=== PATIENT | male | born 1985 | race Caucasian/White ===

== ENCOUNTER 2022-08-29 20:05 | Emergency (ER) | payer MEDICAID ==
[~2022-08-29] VITALS: Ht 165.1 cm; Wt 51.2 kg
[2022-08-29 21:12] VITALS: BP 118/77
[2022-08-29] MEDS ORDERED: HYDR-3965 PO (22:17)
[2022-08-29] MEDS ORDERED: ONDA4TAB12 PO (22:17)
[2022-08-29] MEDS: HYDROcodone/acetaminophen 10/325mg tab PO ONE ×2 (22:34→22:48)
--- NOTE | 2022-08-29 22:35 | NUR ---
pt spit out medication, ordered again
[2022-08-29] MEDS: ondansetron 4mg rapidly disintigrating tab PO ONE (22:48)
== END 2022-08-29 22:50 | disposition home or self-care (01) ==
LOC: ER 20:06
DX: I82.4Z2 Acute embolism and thrombosis of unspecified deep veins of left distal lower extremity (principal); Z79.899 Other long term (current) drug therapy
CPT/HCPCS: 99283

== ENCOUNTER 2023-01-08 07:07 | Emergency (ER) | payer MEDICARE, MEDICAID ==
[~2023-01-08] VITALS: Ht 162.6 cm; Wt 54.5 kg
[~2023-01-08 07:07] MED LIST: ONDA4TAB12 PO
[2023-01-08 07:56] VITALS: BP 110/65; PULSE 88; RESP 18; TEMP 98.2; O2SAT 96
== END 2023-01-08 10:38 | disposition home or self-care (01) ==
LOC: ER 07:07
DX: S83.005A Unspecified dislocation of left patella, initial encounter (principal); Z79.899 Other long term (current) drug therapy; X58.XXXA Exposure to other specified factors, initial encounter; Y93.89 Activity, other specified; Y92.89 Other specified places as the place of occurrence of the external cause; Y99.8 Other external cause status
CPT/HCPCS: 73502; 73564; 93971; 99284; A6449

== ENCOUNTER 2025-03-28 09:22 | Emergency (ER) | payer MEDICARE, MEDICAID ==
[~2025-03-28] VITALS: Ht 162.6 cm; Wt 77.0 kg
[~2025-03-28 09:22] MED LIST changes: +ONDA-243 PO; -ONDA4TAB12 PO
[2025-03-28 09:26] VITALS: TEMP 100.6
--- NOTE | 2025-03-28 09:27 | Physician Documentation ---
History of Present Illness ~ Stated Complaint: FALL Time Seen by MD: 09:25 Primary Medical Doctor: DR ZEE [facility] This is a 39-year-old male who resides in a care facility. History of Down syndrome, nonverbal with developmental delay. His caregiver, who accompanies him, reports that yesterday he had an episode of diarrhea, causing him to slip in the diarrhea and fall onto his bottom. He went to bed last night and the caregiver went to wake him up this morning as usual, but the patient was refusing to bear weight on the right knee. He keeps the right leg in a flexed position, in the right knee does appear to be swollen and is tender to the touch. Patella appears laterally dislocated. No head strike to the knowledge of the caregiver. Patient's behavior is at his baseline other than the unwillingness to ambulate. Tetanus within 5 Years?: Yes Medication Reconciliation Allergies: Coded Allergies: No Known Allergies (Unverified , 03/28/25) Scheduled ONDANSETRON ODT 4mg tablet (Ondansetron Odt), 1 TABLET PO Q6H Past Medical History Past Medical History: CVA/TIA/Stroke, Deep Vein Thrombosis Alcohol Use: None Drug Use: none Lives In: Assisted Care Occupation: disabled Review of Systems ROS As stated above in the HPI, otherwise all systems are reviewed and negative. Physical Exam Physical Exam General: Alert, no apparent distress. HEENT: PERRL, EOMI, no injection, moist mucous membranes. Neck: Full range of motion. Respiratory: Lungs clear, no respiratory distress. Chest: No accessory muscle use. Cardiovascular: Regular rate and rhythm, no murmurs. Gastrointestinal: Soft, nontender, nondistended. Bowels sounds present. Extremities: Normal range of motion, no deformity. Neurologic: Oriented x4. Psychiatric: Normal mood and affect. Skin: Normal color, warm and dry. No edema, no ecchymosis. Progress Progress Note 1040: Patient is still yelling and refusing to straighten right knee more than 30 minutes after Dilaudid 0.5 mg IM. Discussed with nurse, we will repeat dose. 1120: More relaxed after second dose of dilaudid. Able to straighten knee, maya la now appears appropriately aligned. XR pending. Results/Orders Results/Orders Orders - JACQUELINE GONCALVES NP Urinalysis, Cult If Indicated (03/28/25 10:16) Ortho Orders (03/28/25 ) Observation Status Start (03/28/25 10:46) Knee Limited (Ap/Lat) (03/28/25 ) Knee Limited (Ap/Lat) (03/28/25 09:52) Completed Orders - JACQUELINE GONCALVES NP Cbc/Diff (03/28/25 09:52) BMP (03/28/25 09:52) Hydromorphone 0.5 Mg/0.5 Ml/Pf (Dilaudid (03/28/25 10:05) Hydromorphone 0.5 Mg/0.5 Ml/Pf (Dilaudid (03/28/25 10:45) Potassium Cl Sr Tablet (K-Dur Tablet) (03/28/25 10:50) Potassium Cl 10meq Er Tablet (Klor-Con 1 (03/28/25 10:55) Knee Limited (Ap/Lat) (03/28/25 ) Knee Limited (Ap/Lat) (03/28/25 09:52) Medications Received in ER Medications (Trade) Dose Ordered Sig/Evert Route PRN Reason Start Time Stop Time Status Last Admin Dose Admin (Dilaudid inj.) 0.5 mg ONCE ONCE IM 03/28/25 10:05 03/28/25 10:06 DC 03/28/25 10:10 0.5 MG (Dilaudid inj.) 0.5 mg ONCE ONCE IM 03/28/25 10:45 03/28/25 10:46 DC 03/28/25 10:50 0.5 MG (K-DUR tablet) 10 meq ONCE ONCE PO 03/28/25 10:50 03/28/25 10:51 DC 03/28/25 10:50 10 MEQ Vital Signs 03/28/25 03/28/25 03/28/25 03/28/25 09:26 10:10 10:18 10:20 Temp 100.6 Pulse 109 104 Resp 18 16 16 18 B/P (MAP) 134/84 112/73 (86) Pulse Ox 98 98 O2 Flow Rate 0 0 03/28/25 03/28/25 03/28/25 10:50 11:10 11:18 Pulse 98 Resp 18 16 16 B/P (MAP) 116/72 (87) Pulse Ox 98 O2 Flow Rate 0 Laboratory Tests Test 03/28/25 10:16 White Blood Count 8.5 Red Blood Count 4.91 Hemoglobin 16.4 Hematocrit 46.9 Mean Corpuscular Volume 95.5 Mean Corpuscular Hemoglobin 33.5 H Mean Corpuscular Hemoglobin Concent 35.1 Red Cell Distribution Width 14.1 Platelet Count 143 Mean Platelet Volume 7.6 Neutrophils (%) (Auto) 84.1 H Lymphocytes (%) (Auto) 8.8 L Monocytes (%) (Auto) 6.8 Eosinophils (%) (Auto) 0 Basophils (%) (Auto) 0.3 Neutrophils # (Auto) 7.1 Lymphocytes # (Auto) 0.7 L Monocytes # (Auto) 0.6 Eosinophils # (Auto) 0.0 Basophils # (Auto) 0.0 CBC Comment Sodium Level 137 Potassium Level 3.3 L Chloride Level 106 Carbon Dioxide Level 22.7 L Anion Gap 8 Blood Urea Nitrogen 18 Creatinine 1.09 Estimated GFR/1.73 m2 76 BUN/Creatinine Ratio 16.5 Glucose Level 126 H Calcium Level 7.1 L Albumin 3.2 L Chemistry Comments EKG/XRAY/CT/US/VASC/MRI Bone/Soft Tissue X-Ray (Spine) : Additional Comment [place] [id number] DIAGNOSTIC RADIOLOGY Patient: VETO CALDWELL Medical Record: [id number] [facility] : 1985, Age: 39 Sex: Male Location: ER Patient Status: REG ER Service Date/Time: 03/28/25951 Ordering Physician: JACQUELINE GONCALVES NP Exam: KNEE LIMITED (AP /LAT) CLINICAL INFORMATION: Right knee pain. TECHNIQUE: 2 views of the right knee were obtained. COMPARISON: DI KNEE LIMITED (AP/LAT) on DOS: 03/28/25, DI HIP UNILATERAL 2 VIEWS on DOS: 01/08/23, DI KNEE, COMP 4 VW MIN on DOS: 01/08/23 FINDINGS: Mild cortical deformity at the lateral tibial plateau, possible fracture. There is cortical deformity at the proximal fibular neck on the AP view, possible nondisplaced fracture. Mild joint space narrowing of the medial and lateral compartments. No focal soft tissue swelling. Small to moderate joint effusion. IMPRESSION: 1. Cortical deformity at the lateral tibial plateau, possible fracture. Correlate with clinical findings. CT could be obtained to further evaluate if clinically indicated. 2. Mild cortical deformity of the proximal fibular neck on the AP view, not definitely confirmed on additional views, possible nondisplaced fracture. This could also be further evaluated on CT if clinically indicated. Electronically Signed by:MANUEL RASHID DO Date & Time: 03/28/25 115 Dictated by: MANUEL RASHID DO Dictation date and time: 03/28/25 1156 Primary Care Provider: NO PRIMARY CARE PROVIDER cc: JACQUELINE GONCALVES PHARMACY CLINICAL COORDINATOR ~ Medical Decision Making Additional information obtaine: old records Findings Patient was last seen here on 01/08/2023 for a patellar dislocation. History is notable for developmental delay, nonverbal status, previous stroke, DVT. Differential Dx:Considerations: Include: Closed head injury, Cardiac injury, Fracture(s), Intraabdominal injury, Pneumothorax, Cerebral contusion, Pulmonary contusion, Spine injury, Tracheal injury, Urological injury, Vascular injury, Abrasion(s), Contusion(s), Foreign body(s), Hematoma(s), Laceration(s), Encephalopathy Additional Comment Most Likely Diagnoses Recurrent patellar dislocation or subluxation: Given the history of prior patellar dislocation and recent trauma (fall onto the bottom), acute patellar instability is highly likely. Down syndrome is associated with ligamentous laxity, further predisposing to recurrence. Swelling and refusal to bear weight are consistent with acute dislocation or subluxation.[1] Meniscal tear or ligamentous injury: Trauma with inability to bear weight and joint swelling raises concern for meniscal or ligamentous injury (ACL/MCL), which can present with effusion and pain after a fall.[2-3] Soft-tissue contusion or intra-articular hemarthrosis: Direct trauma may cause bleeding into the joint (hemarthrosis) or significant contusion, especially in patients with underlying joint instability.[4] Prepatellar bursitis: Falling directly onto the knee can cause acute inflammation of the prepatellar bursa, leading to swelling and pain.[5] Reactive arthritis: The recent diarrheal illness raises the possibility of post- enteric reactive arthritis, which typically presents as an asymmetric monoarthritis of the lower extremity within days to weeks after infection.[6] Most Important Not to Miss Diagnoses Septic arthritis: Acute monoarticular swelling, pain, and refusal to bear weight could indicate septic arthritis, especially in a nonverbal patient who cannot report systemic symptoms. Septic arthritis requires urgent arthrocentesis for diagnosis and prompt antibiotics.[7] Occult patellar or tibial plateau fracture: A fall with inability to bear weight and swelling may indicate an occult fracture, which can be missed on initial radiographs. Tibial plateau fractures are often overlooked and require careful imaging, especially if standard X-rays are inconclusive.[8] Deep vein thrombosis (DVT): Acute swelling and pain in the lower extremity, especially in a non-ambulatory patient, should prompt consideration of DVT. Compression ultrasonography is the first-line test.[9] Departure Time of Disposition: 12:16 Impression: Primary Impression: Fall Qualified Codes: W19.XXXA - Unspecified fall, initial encounter Additional Impressions: Patellar dislocation Qualified Codes: S83.004A - Unspecified dislocation of right patella, initial encounter Tibial plateau fracture, right Qualified Codes: S82.141A - Displaced bicondylar fracture of right tibia, initial encounter for closed fracture Fracture, fibula, proximal Qualified Codes: S82.831A - Other fracture of upper and lower end of right fibula, initial encounter for closed fracture Discharge Instructions: Fall Prevention in the Home, Adult, Nondisplaced Fibular Ankle Fracture Treated With Immobilization, Tibial and Fibular Fractures Additional Instructions: Veto needs to be kept non weight bearing on the right leg while it heals. He should keep the knee immobilizer on except when in bed or bathing. If he does get up out of bed, he should use a walker and keep all weight off the right leg. Please see ortho for followup soon. Return if worse. Referrals: NO PRIMARY CARE PROVIDER (PCP) JAYLON GRACE Jr., MD Prescriptions Hydrocodone Bit/Acetaminophen (Hydrocodon-Acetaminophen 5-325) 5 Mg-325 Mg Tablet 1 TAB PO TID PRN PRN for pain for 5 Days, #15 TAB Prov: JACQUELINE GONCALVES NP 03/28/25 Education Educated: Patient, Family, Other Educated regarding: diagnosis, treatment, prognosis, need for follow up Signature Scribe Signature: x Attestation: The note accurately reflects work and decisions made by me.Jacqueline Riggs NP 03/28/25 09:59 JACQUELINE GONCALVES NP Mar 28, 2025 09:27
[2025-03-28] MEDS: HYDROmorphone inj. 0.5 MG/0.5 ML DISP.SYRIN IM ONE ×2 (10:10→10:50)
[2025-03-28 10:23] LABS: MEAN PLATELET VOLUME 7.6 FL (7.4-10.4); RED CELL DISTRIBUTION WIDTH 14.1 % (11.5-14.5)
[2025-03-28 10:33] LABS: CREATININE 1.09 MG/DL (0.60-1.10); TOTAL CARBON DIOXIDE 22.7 MMOL/L (24-32); eCRCL 78 ML/MIN; eGFR 76 ML/MIN
[2025-03-28] MEDS: potassium Cl 20 mEq SR tablet PO ONE (10:50)
--- NOTE | 2025-03-28 11:58 | RADIOLOGY REPORT ---
CLINICAL INFORMATION: Right knee pain. TECHNIQUE: 2 views of the right knee were obtained. COMPARISON: DI KNEE LIMITED (AP/LAT) on DOS: 03/28/25, DI HIP UNILATERAL 2 VIEWS on DOS: 01/08/23, DI KNEE, COMP 4 VW MIN on DOS: 01/08/23 FINDINGS: Mild cortical deformity at the lateral tibial plateau, possible fracture. There is cortical deformity at the proximal fibular neck on the AP view, possible nondisplaced fracture. Mild joint space narrowing of the medial and lateral compartments. No focal soft tissue swelling. Small to moderate joint effusion. IMPRESSION: 1. Cortical deformity at the lateral tibial plateau, possible fracture. Correlate with clinical findings. CT could be obtained to further evaluate if clinically indicated. 2. Mild cortical deformity of the proximal fibular neck on the AP view, not definitely confirmed on additional views, possible nondisplaced fracture. This could also be further evaluated on CT if clinically indicated.
[2025-03-28] MEDS ORDERED: HYDR-3964 PO (12:19)
[2025-03-28 12:42] VITALS: BP 113/77; PULSE 98; O2SAT 93
[2025-03-28 13:55] VITALS: RESP 16
--- NOTE | 2025-03-30 08:53 | RADIOLOGY REPORT ---
CLINICAL INDICATION: pain TECHNIQUE: 3 radiographic views of the right knee were obtained. Comparison: DI KNEE LIMITED (AP/LAT) on DOS: 03/28/25, DI HIP UNILATERAL 2 VIEWS on DOS: 01/08/23, DI KNEE, COMP 4 VW MIN on DOS: 01/08/23 FINDINGS/IMPRESSION: Again visualized is lateral tibial plateau fracture. Mild tricompartmental knee joint osteoarthrosis.
== END 2025-03-28 13:58 ==
LOC: ER 09:22
DX: S82.141A Displaced bicondylar fracture of right tibia, initial encounter for closed fracture (principal); S82.831A Other fracture of upper and lower end of right fibula, initial encounter for closed fracture; S83.094A Other dislocation of right patella, initial encounter; Q90.9 Down syndrome, unspecified; Z86.718 Personal history of other venous thrombosis and embolism; Z86.73 Personal history of transient ischemic attack (TIA), and cerebral infarction without residual deficits; Z79.899 Other long term (current) drug therapy; W01.0XXA Fall on same level from slipping, tripping and stumbling without subsequent striking against object, initial encounter; Y93.89 Activity, other specified; Y92.89 Other specified places as the place of occurrence of the external cause; Y99.8 Other external cause status
CPT/HCPCS: 36415; 73560; 80048; 85025; 96372; 99285; J1171